=== PATIENT | male | born 2000 | race Caucasian/White ===

== ENCOUNTER 2023-02-11 04:27 | Emergency (ER) | payer OTHER ==
[2023-02-11 04:38] VITALS: BP 144/88; PULSE 86; RESP 18; TEMP 98.3; BMI 28.3
[2023-02-11] MEDS ORDERED: LORazepam 2 MG TABLET PO ONE (04:56)
[2023-02-11] MEDS ORDERED: LORazepam 1 MG TABLET ONE (05:03)
[2023-02-11] MEDS ORDERED: MAG HYDROX/AL HYDROX/SIMETH 30 ML UNIT-DOSE CUP PO ONE (05:25)
[2023-02-11] MEDS ORDERED: FAMOTIDINE 20 MG TABLET PO ONE (05:26)
[2023-02-11] MEDS ORDERED: MAG HYDROX/AL HYDROX/SIMETH 30 ML UNIT-DOSE CUP ONE (05:27)
[2023-02-11] MEDS ORDERED: FAMOTIDINE 20 MG TABLET ONE (05:27)
== END 2023-02-11 06:07 | disposition home or self-care (01) ==
LOC: JER 04:27
DX: R07.9 Chest pain, unspecified (principal)
CPT/HCPCS: 71046-TC-FY; 93005; 93010; 99283-25

== ENCOUNTER 2023-09-09 17:44 | Emergency (ER) | payer OTHER ==
[2023-09-09 17:49] VITALS: BP 133/85; PULSE 102; RESP 18; TEMP 98.1; BMI 27.3
[2023-09-09] MEDS ORDERED: ACETAMINOPHEN 500 MG TABLET (FP) PO ONE (19:38)
[2023-09-09] MEDS ORDERED: ACETAMINOPHEN 325 MG TABLET (FP) ONE (19:50)
[2023-09-09] MEDS ORDERED: KETOROLAC TROMETHAMINE 15 MG/ML VIAL IVPUSH ONE (20:01)
[2023-09-09 20:07] LABS: BASO % 0.7 % (0-2.0); EOS % 0.9 % (0-4.5); HEMATOCRIT 43.2 % (35.4-49); HEMOGLOBIN 15.2 GM/dL (11.7-16.9); LYMPH % 19.8 % (8-40); MCH 28.4 pg (25.7-33.7); MCHC 35.2 g/dl (32.0-35.9); MEAN CELL VOLUME 80.8 fl (80-96); MEAN PLT VOLUME 7.7 fl (7.5-11.1); MONO % 6.6 % (3.8-10.2); PLATELET COUNT 257 10^3/uL (134-434); RBC 5.35 M/mm3 (4.00-5.60); RDW 12.5 % (11.9-15.9); WHITE BLOOD COUNT 8.4 K/mm3 (4.0-10.0)
[2023-09-09] MEDS ORDERED: KETOROLAC TROMETHAMINE 30 MG/1 ML VIAL ONE (20:09)
[2023-09-09 20:50] LABS: POTASSIUM 4.1 mmol/L (3.5-5.1)
[2023-09-09 20:53] LABS: CALCIUM 8.9 mg/dL (8.5-10.1)
[2023-09-09 20:54] LABS: ALBUMIN 4.3 g/dl (3.4-5.0); BLOOD UREA NITROGEN 12.9 mg/dL (7-18)
[2023-09-09 20:57] LABS: CREATININE 1.1 mg/dL (0.55-1.3)
[2023-09-09 20:59] LABS: BILIRUBIN,TOTAL 0.6 mg/dL (0.2-1); TOT PROT 7.8 g/dl (6.4-8.2)
== END 2023-09-09 21:41 | disposition home or self-care (01) ==
LOC: JER 17:44
PROC: 3E0333Z Introduction of Anti-inflammatory into Peripheral Vein, Percutaneous Approach (ICD-10-PCS; principal; 2023-09-09)
DX: R07.81 Pleurodynia (principal)
CPT/HCPCS: 36415; 71046-TC-FY; 80053; 85025; 85379; 93005; 93010; 96374; 99285-25